=== PATIENT | female | born 1970 | race Caucasian/White ===

== ENCOUNTER → 2018-01-08 10:22 | Outpatient (CLI) | payer BC, SELFPAY ==
--- NOTE | 2018-01-08 10:33 | XR_ITS ---
XR foot LT min 3V HISTORY: ITS.REASON: LEFT FOOT PAIN ORDERING PHYSICIAN: Maura León PATIENT AGE: 47 years COMPARISON: None FINDINGS: No fracture or dislocation. No lytic or blastic change. There is normal mineralization.. The joint spaces are well-preserved. No significant degenerative/arthritic changes. No erosive changes evident. IMPRESSION: Negative, no acute finding
== END ==
PROVIDERS: PCP Family Medicine; Visit Provider Nurse Practitioner
DX: M79.672 Pain in left foot (principal)
CPT/HCPCS: 73630

== ENCOUNTER → 2020-10-11 10:00 | Outpatient (CLI) | payer BC, SELFPAY | PROVIDERS: PCP Family Medicine; Visit Provider Family Medicine | DX: Z20.822 Contact with and (suspected) exposure to COVID-19 (principal) | CPT/HCPCS: U0003 ==

== ENCOUNTER → 2021-02-06 08:19 | Outpatient (POV) | payer BC, SELFPAY | PROVIDERS: Visit Provider Dermatology | DX: Z00.00 Encounter for general adult medical examination without abnormal findings (principal) ==

== ENCOUNTER → 2021-02-21 10:17 | Outpatient (CLI) | payer BC, SELFPAY ==
--- NOTE | 2021-02-21 10:19 | US_ITS ---
PROCEDURE: US SOFT TISSUE HEAD AND NECK CLINICAL INDICATION: ENLARGED LYMPH NODE IN NECK COMPARISON: No exams were available for comparison FINDINGS: Ultrasound of the bilateral neck regions was performed. There is a 2-3 centimeter lymph node in the superior right neck region which appears to show normal morphology. Submandibular glands show no focal abnormality. At site of pain right neck more posteriorly, no discrete abnormality noted. At this point I would recommend CT soft tissue neck with IV contrast to more definitively assess for any other areas of adenopathy. IMPRESSION: 2-3 centimeter lymph node superior right neck appears to show normal morphology. CT soft tissue neck recommended with IV contrast more definitively assess for any other areas of adenopathy. Dictated by: Obed Mendez MD 02/21/2021 12:41 Obed Mendez MD in [place] 02/21/2021 12:41
== END ==
PROVIDERS: PCP Family Medicine; Visit Provider Nurse Practitioner Family
DX: R59.0 Localized enlarged lymph nodes (principal)
CPT/HCPCS: 76536

== ENCOUNTER → 2021-03-05 13:13 | Outpatient (CLI) | payer BC, SELFPAY ==
--- NOTE | 2021-03-05 13:15 | CT_ITS ---
PROCEDURE: CT SOFT TISSUE NECK W CON CLINICAL HISTORY: ENLARGED LYMPHY NODE IN NECK Rt posterior neck nodule at base of skull tendon COMPARISON: No exams were available for comparison TECHNIQUE: Oral Contrast: None IV Contrast: 75 mL Isovue 370 Axial images obtained with sagittal and coronal reformats. All CT scans at the facility use one or more dose reduction, viz: automated exposure control, ma/kV adjustment per patient size (including targeted exams where dose is matched to indication, i.e. head), or iterative reconstruction technique. FINDINGS: Significant artifact present from patient's dental work. Palpable nodule is reported in the posterior neck on the right. BB is placed at this region. There are no underlying masses or abnormal fluid collections at this area. No enlarged lymph nodes or abnormal bony protuberance. Survey of the remaining neck shows no obvious mass or adenopathy or abnormal fluid collection. The nasopharynx, oropharynx, and hypopharynx are unremarkable. The epiglottis and glottic region and subglottic area as well as the thyroid gland has an unremarkable appearance. Parotid and submandibular gland is unremarkable. There is a retention cyst in the left maxillary sinus inferiorly measuring 12 mm. Mild osteoarthritis left TMJ IMPRESSION: Essentially negative CT of the neck. No abnormality to account for the area of palpable concern Dictated by: Vicente Kwan MD 03/06/2021 09:17 Vicente Kwan MD in [place] 03/06/2021 09:17
== END ==
PROVIDERS: PCP Family Medicine; Visit Provider Family Medicine
DX: R59.0 Localized enlarged lymph nodes (principal)
CPT/HCPCS: 70491; Q9967

== ENCOUNTER 2021-03-29 12:09 | Emergency (ER) | payer BC, SELFPAY ==
--- NOTE | 2021-03-29 12:34 | HMH.EDUTC ---
[facility] [place] Disposition Clinical Impression: Exposure to COVID-19 virus, Viral syndrome Disposition: Home, Self-Care Condition on Discharge: Good Instructions: Preventing the Spread of Coronavirus Discharge Instructions Additional Instructions: Drink plenty of fluids. Take tylenol for pain or fever. Return if you begin to have difficulty breathing. Follow up with your regular doctor. GO TO THE ER FOR ANY WORSENING SYMPTOMS Prescriptions: Ondansetron [Zofran 4mg ODT] 4 mg PO Q8HP PRN #12 tab.rapdis PRN Reason: Nausea Transmission Status: Received by [facility] #[id number] Referrals: Joshua Lyons MD [Primary Care Provider] - Forms: Work/School Release Time of Disposition: 12:35 Medical Decision Making - Medical Records Medical records reviewed: No: I reviewed the patient's medical records. - Yimi Inquiry Pt receiving controlled substance: No Vital Signs: 03/29/21 13:01 03/29/21 13:14 Temperature 99.1 F 99 F Temperature Source Oral Pulse Rate 73 Pulse Rate [Left] 73 Respiratory Rate 18 16 Blood Pressure 167/91 H Blood Pressure [Right Arm] 172/93 H Blood Pressure Mean [Right Arm] 119 02 Sat by Pulse Oximetry 99 Orders (Tests/Meds): ORDERS Category Date Time Status Covid-19 Nasal PCR ([facility]) Routine Lab 03/29/21 12:40 Received [facility] [place] HPI - General Stated complaint: covid test Time Seen by Provider: 03/29/21 13:05 - History of Present Illness Provider Complaint: She has been exposed to covid-19 in her household. She c/o headache and nausea for the past 1 day. - Related Data Home Medications Medication Instructions Recorded Confirmed estradioL [Estradiol] 0.1 mg TOPICAL DAILY 02/06/18 07/17/19 Previous Rx's Medication Instructions Recorded Azithromycin [Z-Nithin 250mg Tab*] 250 mg PO UD DOSE PK #6 tab 07/17/19 guaiFENesin [Mucinex 600mg tablet] 1 - 2 tab PO BIDP PRN #30 07/17/19 tab.er.12h methylPREDNISolone [Medrol] 4 mg PO DIRECTED 6 Days #21 07/17/19 tab.ds.pk Ondansetron [Zofran 4mg ODT] 4 mg PO Q8HP PRN #12 tab.rapdis 03/29/21 Allergies Allergy/AdvReac Type Severity Reaction Status Date / Time No Known Allergies Allergy Verified 02/06/18 17:30 [facility] History - Hepatitis A Screen Attestation statement:: This patient has been screened for Hepatitis A risk factors. I have reviewed the patient's past medical history: Yes Medical History: Reports:: Hypertension Denies:: Cancer, Diabetes Mellitus Type 1, Diabetes Mellitus Type 2, MRSA Other Surgeries: Yes: Other (hysterectomy) Amputation: No Fractures: No - Social History Smoking Status: Never smoker Alcohol Intake: never Occupational Status: employed ROS Obtained: Yes All systems reviewed & no additional complaints - Constitutional Constitutional: Reports system reviewed and no additional complaints, except as docu - Eyes Eyes: Reports system reviewed and no additional complaints, except as docu - ENT Ears, Nose, Mouth, and Throat: Reports system reviewed and no additional complaints, except as docu - Cardiovascular Cardiovascular: Reports system reviewed and no additional complaints, except as docu - Respiratory Respiratory: Reports system reviewed and no additional complaints, except as docu - Gastrointestinal Gastrointestingal: Reports: system reviewed and no additional complaints, except as docu Physical Exam - General General appearance: alert, in no apparent distress - Head Head exam: atraumatic, normocephalic, normal inspection - Eye Eye exam: Present: normal appearance, PERRL, EOMI - ENT ENT exam: Present: normal exam, normal oropharynx, mucous membranes moist, TM's normal bilaterally, normal external ear exam - Neck Neck exam: Present: normal inspection, full ROM, trachea midline. Absent: meningismus, lymphadenopathy - Chest Chest inspection: Present: normal inspection, symmetric chest wall rise. Absent: tenderness - Resp
[2021-03-29 13:01] VITALS: BP 172/93; PULSE 73; RESP 18; TEMP 37.3; O2SAT 99; BMI 34.5
[2021-03-29 13:14] VITALS: BP 167/91; PULSE 73; RESP 16; TEMP 37.2
--- NOTE | 2021-03-29 17:43 | PC.NURSE ---
relayed positive covid results.
== END 2021-03-29 13:17 | disposition home or self-care (01) ==
PROVIDERS: Emergency Provider Nurse Practitioner Family; PCP Family Medicine
DX: U07.1 COVID-19 (principal); I10 Essential (primary) hypertension
CPT/HCPCS: 99202; G0463; U0003

== ENCOUNTER 2021-09-04 09:00 | Emergency (ER) | payer BC, SELFPAY ==
[2021-09-04 09:08] VITALS: PULSE 78; RESP 14; TEMP 36.6; O2SAT 96; BMI 32.4
[2021-09-04 09:16] VITALS: BP 165/93; PULSE 78; RESP 14; TEMP 36.6
--- NOTE | 2021-09-04 09:34 | HMH.EDUTC ---
[facility] [place] Disposition Clinical Impression: Otitis media Qualifiers: Otitis media type: suppurative Chronicity: acute Laterality: bilateral Recurrence: non-recurrent Spontaneous tympanic membrane rupture: without spontaneous rupture Qualified Code(s): H66.003 - Acute suppurative otitis media without spontaneous rupture of ear drum, bilateral Sinusitis Qualifiers: Sinusitis location: unspecified location Chronicity: acute Recurrence: non-recurrent Qualified Code(s): J01.90 - Acute sinusitis, unspecified Disposition: Home, Self-Care Condition on Discharge: Good Instructions: Middle Ear Infection, DI for Sinusitis, Methylprednisolone Injection Additional Instructions: Drink plenty of fluids. Take tylenol or ibuprofen for pain or fever. Take the medications as directed. Follow up with your regular doctor. GO TO THE ER FOR ANY WORSENING SYMPTOMS Don't start the oral steroids until tomorrow, since you had the shot here today. Follow up with your primary care physician regarding your elevated blood pressure. Prescriptions: methylPREDNISolone [Medrol] 4 mg PO DIRECTED 6 Days #21 packet Transmission Status: Received by [facility] guaiFENesin [Mucinex 600mg tablet] 1 - 2 tab PO BIDP PRN #30 tab PRN Reason: Congestion Transmission Status: Received by [facility] Azithromycin [Z-Nithin 250mg Tab*] 250 mg PO UD DOSE PK #6 tab Transmission Status: Received by [facility] Referrals: Joshua Lyons MD [Primary Care Provider] - Time of Disposition: 09:40 Medical Decision Making - Medical Records Medical records reviewed: No: I reviewed the patient's medical records. - Yimi Inquiry Pt receiving controlled substance: No Vital Signs: 09/04/21 09:08 09/04/21 09:16 Temperature 97.9 F 97.9 F Temperature Source Oral Pulse Rate 78 Pulse Rate [Left] 78 Respiratory Rate 14 14 Blood Pressure 165/93 H 02 Sat by Pulse Oximetry 96 - Lab Data Lab results reviewed: Yes: I reviewed the patient's lab results. [facility] [place] HPI - General Stated complaint: ear pain Time Seen by Provider: 09/04/21 09:34 Mode of Arrival: Ambulatory Source of Information: Patient Limitations: No Limitations Description of Symptoms (Recalled from Triage Doc. by RN): pt c/o of a L ear ache x2 days. HEENT Symptoms (Recalled from RN notes): Yes (L ear ache) Resp Symptoms (Recalled from RN notes): No Skin Symptoms (Recalled from RN notes): No MS Symptoms (Recalled from RN notes): No Functional Status (Recalled from RN notes): wnl - History of Present Illness Provider Complaint: She states that for the past 4 days she has had worsening left ear pain pressure. She has sinus congestion and lots of drainage from her sinuses. She gets sinus infections this time of year and that is what she feels like is going on. She as been fully vaccinated for Covid-19 and she has had covid-19 back in the summer. She denies any contact with someone that has covid-19. - Related Data Home Medications Medication Instructions Recorded Confirmed estradioL [Estradiol] 0.1 mg TOPICAL DAILY 02/06/18 07/08/21 Previous Rx's Medication Instructions Recorded amoxicillin 500 mg tablet 500 mg PO BID 10 Days #20 tab 07/08/21 Azithromycin [Z-Nithin 250mg Tab*] 250 mg PO UD DOSE PK #6 tab 09/04/21 guaiFENesin [Mucinex 600mg tablet] 1 - 2 tab PO BIDP PRN #30 tab 09/04/21 methylPREDNISolone [Medrol] 4 mg PO DIRECTED 6 Days #21 09/04/21 packet Allergies Allergy/AdvReac Type Severity Reaction Status Date / Time No Known Allergies Allergy Verified 07/08/21 11:25 - Worker's Comp Is this a Worker's Comp case?: No H History - Hepatitis A Screen Drug use history?: No High risk sexual behaviors?: No History of sexually transmitted infection?: No Currently employed?: No Childcare worker?: No Do you have indoor plumbing?: Yes Do you have electricity?: Yes Attestation statement:: This patient
== END 2021-09-04 09:52 | disposition home or self-care (01) ==
PROVIDERS: Emergency Provider Nurse Practitioner Family; PCP Family Medicine
DX: H66.003 Acute suppurative otitis media without spontaneous rupture of ear drum, bilateral (principal); J01.90 Acute sinusitis, unspecified; I10 Essential (primary) hypertension
CPT/HCPCS: 99202; G0463

== ENCOUNTER 2022-08-29 14:45 | Emergency (ER) | payer BC, SELFPAY ==
[2022-08-29 15:16] VITALS: BP 179/100; PULSE 89; RESP 16; TEMP 36.8; O2SAT 98; BMI 33.3
[2022-08-29 15:36] LABS: Microscopic, Urine URINE MICROSCOPIC (MICROSCOPIC)
[2022-08-29 15:47] LABS: Appearance,Urine CLEAR (Clear); Bilirubin,Urine Negative (Negative); Blood, Urine Negative (Negative); Color,Urine YELLOW (Yellow); Glucose,Urine (UA) Negative (Negative); Ketones,Urine Negative (Negative); Leukocyte Esterase,Urine Negative (Negative); Nitrate,Urine Negative (Negative); PH,Urine 6.5 (5.0-8.5); Protein,Urine Negative (Negative); Specific Gravity, Urine <= 1.005 (1.005-1.030); Urobilinogen,Urine 0.2 EU/dl (0.2)
[2022-08-29 15:53] VITALS: BP 186/94; PULSE 77; O2SAT 99
[2022-08-29 16:00] VITALS: BP 173/96; PULSE 85; O2SAT 98
[2022-08-29 16:03] LABS: RBC,Urine Occasional #/hpf (0-3); WBC,Urine Occasional #/hpf (0-3)
--- NOTE | 2022-08-29 16:05 | CT_ITS ---
PROCEDURE INFORMATION: Exam: CT Abdomen And Pelvis With Contrast Exam date and time: 08/29/2022 4:33 PM Age: 52 years old Clinical indication: Abdominal pain; Other: Rlq pain; Prior surgery; Additional info: Rlq pain and anorexia TECHNIQUE: Imaging protocol: Computed tomography of the abdomen and pelvis with contrast. Radiation optimization: All CT scans at this facility use at least one of these dose optimization techniques: automated exposure control; mA and/or kV adjustment per patient size (includes targeted exams where dose is matched to clinical indication); or iterative reconstruction. Contrast material: ISOVUE; Contrast volume: 75 ml; Contrast route: IV; COMPARISON: No relevant prior studies available. FINDINGS: Liver: No focal hepatic lesions. Gallbladder and bile ducts: There has been a cholecystectomy. No biliary ductal dilation. Pancreas: No peripancreatic fluid stranding. No main pancreatic ductal dilation. Spleen: There are innumerable hypodensities throughout the spleen too small to accurately characterize. No splenomegaly. Adrenal glands: Normal. No mass. Kidneys and ureters: Nephrograms are symmetric. No nephrolithiasis or hydroureteronephrosis on either side. No solid lesions Stomach and bowel: A short segment of terminal ileum demonstrates diffuse inflammatory changes and stratification of the wall. Appendix: A normal appendix is identified. Intraperitoneal space: There is no evidence of free intraperitoneal or pelvic fluid. Vasculature: Retroaortic left renal vein noted. Aorta is nonaneurysmal. Lymph nodes: Right hilar calcified nodes noted.Lung bases are unremarkable. No evidence of retroperitoneal or mesenteric lymphadenopathy. Urinary bladder: Urinary bladder is unremarkable. Reproductive: Status post hysterectomy. Bones/joints: Unremarkable. No acute fracture. Soft tissues: Unremarkable. IMPRESSION: Infectious/inflammatory terminal ileitis.
--- NOTE | 2022-08-29 16:07 | HMH.EDGENADL ---
Discharge Plan Disposition Patient Disposition: Home, Self-Care Condition: Good Chief Complaint: Abdominal Pain Prescriptions Prescriptions: No Action amoxicillin 500 mg tablet 500 mg PO BID 10 Days Qty: 20 0RF estradiol 0.1 patch semiweekly 0.1 mg TOPICAL DAILY azithromycin 250 MG tablet 250 mg PO UD DOSE PK Qty: 6 0RF Rx Instructions: Take two (2) tablets today, then one (1) tablet days #2 thru #5 methylprednisolone 4 MG tablets,dose pack 4 mg PO DIRECTED 6 Days Qty: 21 0RF guaifenesin 600 MG tablet extended release 12hr 1 - 2 tab PO BIDP PRN (Reason: Congestion) Qty: 30 0RF Referrals Follow up/Referrals: Fredy Eugene MD [Primary Care Provider] - See instructions Activity Restrictions/Add. Instructions Additional Instructions/Restrictions: Follow-up with your family doctor regarding this visit to the emergency department and new diagnosis of terminal ileitis. Take Tylenol and Motrin every 6 hours with food and water to prevent GI upset and help with inflammation. If you have bloody bowel movements, worsening signs or symptoms, return to the ED for further evaluation. This could be the result of infectious (likely viral), or new diagnoses of inflammatory bowel disease, such as Crohn disease. Clinical Impressions Clinical Impression: Ileitis, terminal Qualifiers: Digestive disease complication type: without complication Qualified Code(s): K50.00 - Crohn's disease of small intestine without complications Instructions Patient Instructions: DI for Acute Abdominal Pain Discharge ED Provider: Terry Hutchins General Adult HPI General Chief complaint: Abdominal Pain Stated complaint: Rt side abd pain Time Seen by Provider: 08/29/22 15:35 Mode of Arrival: Ambulatory Source of Information: Patient Limitations: No Limitations Description of Symptoms (Recalled from ER Triage Doc. by RN): Pt c/o umbilical area pain that radiates down to lower abd and around to flank intermittently. Pt also reports nausea. Pt states pain began lastnight. History of Present Illness HPI narrative: This is a 52-year-old female with history of JORGE/BSO, cholecystectomy who is presenting with abdominal pain. Patient states that she began having abdominal pain on 08/28 in the PM. She was sitting still, not exerting herself when pain started. It has since been crescendo in nature. It ranges anywhere from 4-8 out of 10 and is random, not exacerbated by anything in particular. Nothing particular seems to make it better, but lying on her right side where the pain is seems to make it worse consistently. Pain feels as if it radiates from her right lower quadrant to her right flank. Denies nausea, vomiting, diaphoresis, dysuria, hematuria, abnormal vaginal discharge or bleeding, constipation, fevers, chills, but has had associated decreased p.o. intake. Related Data Home Medications Medication Instructions Recorded Confirmed estradiol 0.1 mg/24 hr semiweekly 0.1 mg topical DAILY Supplement 02/06/18 07/08/21 transdermal patch Previous Rx's Medication Instructions Recorded amoxicillin 500 mg tablet 500 mg PO BID 10 days #20 tabs 07/08/21 azithromycin 250 mg tablet 250 mg PO UD DOSE PK #6 tabs 09/04/21 guaifenesin 600 mg tablet, 1 - 2 tab PO BIDP PRN Congestion 09/04/21 extended release 12 hr #30 tabs methylprednisolone 4 mg tablets in 4 mg PO DIRECTED 6 days #21 09/04/21 a dose pack packets Allergies Allergy/AdvReac Type Severity Reaction Status Date / Time No Known Allergies Allergy Verified 07/08/21 11:25 [facility] Disclaimer: The information contained in this section may have been updated after the patient was seen, as this information can be updated by other users. Social History Smoking Status: Never smoker alcohol intake: never current occupational status: employed Travel in the last 8 weeks: None ROS Obtained: Yes All systems reviewed & no additional complaint
[2022-08-29 16:12] LABS: Basophils # 0.1 K/mm3 (0-0.2); Basophils % 0.5 % (0.1-2.0); Chloride 101 mmol/L (98-107); Eosinophils # 0.1 K/mm3 (0.0-0.4); Eosinophils % 0.6 % (0.1-12.0); Hematocrit 48.2 % (37.0-47.0); Hemoglobin 15.7 g/dL (12.2-16.2); Lymphocytes # 1.2 K/mm3 (0.7-4.5); Lymphocytes % 8.5 % (10-50); Mean Corpuscular HGB Conc 32.7 g/dL (31.8-35.4); Mean Corpuscular Hemoglobin 30.4 pg (27.0-31.2); Mean Corpuscular Volume 93.1 fl (81-99); Mean Platelet Volume 9.4 fl (7.4-10.4); Monocytes # 0.7 K/mm3 (0.1-1.0); Monocytes % 4.8 % (1.7-9.3); Neutrophils # 11.9 K/mm3 (1.8-7.8); Neutrophils % 85.5 % (37.0-80.0); Platelet Count 260 K/mm3 (142-424); Red Blood Count 5.18 M/mm3 (4.20-5.40); Red Cell Distribution Width 12.6 % (11.5-17.5); Sodium 138 mmol/L (136-145); White Blood Count 13.9 K/mm3 (4.8-10.8)
[2022-08-29 16:13] LABS: Potassium 3.8 mmoL/L (3.5-5.1)
[2022-08-29 16:15] LABS: Alanine Aminotransferase 38 U/L (12-78); Albumin Level 4.6 g/dl (3.5-5.0); Albumin/Globulin Ratio 1.4 (1.1-1.8); Alkaline Phosphatase 130 U/L (38-126); Anion Gap 10.8 mEq/L (5-15); Aspartate Amino Transferase 41 U/L (14-36); Blood Urea Nitrogen 9 mg/dl (7-17); Calcium 9.6 mg/dl (8.4-10.2); Carbon Dioxide 30 mmol/L (22.0-30.0); Creatinine Clearance Estimated 88 mL/min (50-200); Estimated Glomerular Filt Rate 58 ml/min (>60); GFR (African American) 70 ML/MIN (>60); Globulin 3.4 g/dL (1.3-3.2); Glucose 93 mg/dl (74-100)
[2022-08-29 16:16] LABS: MANUAL DIFFERENTIAL MANUAL DIFFERENTIAL (MANUAL DIFF)
[2022-08-29 16:21] LABS: Lipase 161 U/L (23-300)
[2022-08-29 16:40] LABS: Eosinophils % 1 % (0-3); Lymphocytes % 13 % (10-50); Monocytes % 1 % (2-9); Neutrophils % 85 % (42-76); Platelet Estimate Normal; RBC Morphology Normal; Total Cells Counted 100
--- NOTE | 2022-08-29 17:02 | PC.NURSE ---
checked on pt at this time, pt family at [facility], states no needs at this time
[2022-08-29 17:38] VITALS: BP 158/83; PULSE 68; RESP 20; TEMP 36.8; O2SAT 95
== END 2022-08-29 17:39 | disposition home or self-care (01) ==
PROVIDERS: Emergency Provider Emergency Medicine; PCP Family Medicine
DX: K50.00 Crohn's disease of small intestine without complications (principal); R11.0 Nausea; Z79.3 Long term (current) use of hormonal contraceptives; Z79.52 Long term (current) use of systemic steroids; Z79.899 Other long term (current) drug therapy
CPT/HCPCS: 74177; 80053; 81001; 83605; 83690; 85007; 85025; 96374; 99285; J2405; Q9967

== ENCOUNTER 2022-09-22 15:02 | Emergency (ER) | payer BC, SELFPAY ==
[2022-09-22 15:03] VITALS: BP 180/94; PULSE 78; RESP 22; TEMP 36.7; O2SAT 95; BMI 33.6
--- NOTE | 2022-09-22 15:18 | EXP.UTC ---
Discharge Plan Disposition Patient Disposition: Home, Self-Care Condition: Good Prescriptions Prescriptions: New cyclobenzaprine 10 mg Tablet 10 mg PO BID PRN (Reason: Muscle Spasm) Qty: 20 0RF methylprednisolone 4 mg Tablets,Dose Pack 4 mg PO DIRECTED Qty: 21 0RF No Action estradiol 0.05 mg/24 hr patch semiweekly 1 patch transdermal DAILY losartan 100 mg tablet 100 mg PO DAILY rosuvastatin 5 mg tablet 5 mg PO DAILY Referrals Follow up/Referrals: Fredy Eugene MD [Primary Care Provider] - See instructions Activity Restrictions/Add. Instructions Additional Instructions/Restrictions: Go home and rest. It would be best if you rested tomorrow too. No heavy lifting. No twisting. Take the oral medications as directed. The muscle relaxer (cyclobenzaprine--Flexeril) will make you drowsy, so don't drive or operate heavy machinery after taking it. Don't start the oral steroids (medrol dose pack) until tomorrow, since you had the shots in here today. Follow up with your regular doctor. GO TO THE ER FOR ANY WORSENING SYMPTOMS OR CONCERN, ESPECIALLY BOWEL OR BLADDER ISSUES, SADDLE AREA NUMBNESS, FEVER, ETC Clinical Impressions Clinical Impression: Radicular pain in right arm, Acute neck pain Instructions Patient Instructions: DI for Neck Pain, Cyclobenzaprine, Methylprednisolone Injection Discharge ED Provider: Obed Cage [facility] General Stated complaint: pain in R shoulder going to neck Time Seen by Provider: 09/22/22 15:18 History of Present Illness Provider Complaint: She states that for the past 3 days she has had right sided neck pain that radiates down her arm to her hand at time. She states that certain movements make the pain worse. She denies any injury. She denies any chest pain. Related Data Home Medications Medication Instructions Recorded Confirmed estradiol 0.05 mg/24 hr semiweekly 1 patch transdermal DAILY hormone 09/22/22 09/22/22 transdermal patch losartan 100 mg tablet 100 mg PO DAILY . 09/22/22 09/22/22 rosuvastatin 5 mg tablet 5 mg PO DAILY Cholesterol 09/22/22 09/22/22 Previous Rx's Medication Instructions Recorded cyclobenzaprine 10 mg tablet 10 mg PO BID PRN Muscle Spasm #20 09/22/22 tabs methylprednisolone 4 mg tablets in 4 mg PO DIRECTED #21 tabs 09/22/22 a dose pack Allergies Allergy/AdvReac Type Severity Reaction Status Date / Time No Known Allergies Allergy Verified 09/22/22 15:25 [facility] Disclaimer: The information contained in this section may have been updated after the patient was seen, as this information can be updated by other users. Social History Smoking Status: Never smoker alcohol intake: never current occupational status: employed Travel in the last 8 weeks: None ROS Obtained: Yes All systems reviewed & no additional complaints except as documented Constitutional Constitutional: Denies chills and Denies fever(s) Eyes Eyes: Denies eye discharge ENT Ears, Nose, Mouth, and Throat: Denies dizziness, Denies otalgia, Reports neck pain and Denies sore throat Cardiovascular Cardiovascular: Denies chest pain Respiratory Respiratory: Denies shortness of breath, Denies chest congestion, Denies cough, Denies stridor and Denies wheezing Gastrointestinal Gastrointestingal: Denies nausea or vomiting Musculoskeletal Musculoskeletal: Reports as per HPI and Reports neck pain Integumentary/Breasts Skin/Breast: Denies rash Neurologic Neurologic: Denies dizziness and Denies paresthesias Allergic/Immunologic Allergic/Immunologic: Denies wheezing Physical Exam General General appearance: alert and in no apparent distress Head Head exam: atraumatic, normocephalic and normal inspection Eye Eye exam: Present normal appearance, PERRL and EOMI ENT ENT exam: Present normal exam, normal oropharynx, mucous membranes moist, TM's normal bilaterally a
[2022-09-22 16:30] VITALS: BP 180/94; PULSE 78; RESP 20; TEMP 36.7; O2SAT 95
== END 2022-09-22 16:30 | disposition home or self-care (01) ==
PROVIDERS: Emergency Provider Nurse Practitioner Family; PCP Family Medicine
DX: M54.12 Radiculopathy, cervical region (principal)
CPT/HCPCS: 99212; 99213; G0463

== ENCOUNTER → 2022-11-18 08:24 | Outpatient (POV) | payer BC, SELFPAY ==
[2022-11-18 09:05] VITALS: BP 172/103; PULSE 99; RESP 18; O2SAT 97; BMI 32.9
--- NOTE | 2022-11-18 10:11 | EXP.PAIN.OV ---
HPI Data of Consult Patient: new to practice Consult date: 11/18/22 Requesting Physician: Em Aburto APRN Primary Care Provider: Fredy Eugene MD Consult Narrative Reason for consult: Right neck pain, right shoulder pain History of present illness: Ms. Rubio is a 52 year old female who presents today as a new patient. She is a referral from [facility]. Today she rates her pain a 9 out of 10. Patient states she continues to experience significant pain in her neck along the right side with radiating symptoms in her right shoulder that does go into her chest. Patient states that back on September 19 she was diagnosed with an acute shingles outbreak. She was given acyclovir and gabapentin. Patient states that she has completed her last steroid pack and the acyclovir however she continues to have residual pain. 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 Patient does state that she is very tender to touch from the back of her scalp down to her right shoulder. She states that it is very bothersome that even the touch of her hair or clothing causes extreme amounts of pain. She states that at the beginning it was almost like an electrical shock and had pins and needle sensation however she states this did improve some however she would describe her pain as a constant soreness as if twisting inside of her. Patient states that the gabapentin does seem to make her emotional and that she has not noticed significant relief. Patient is also tried facial massage that did provide additional relief. She does state that she is currently in the process of being referred to Dr. Mora however she has not heard from their office yet. Patient does state that she continues to have significant itching as well. She is currently managed with gabapentin 300 mg 3 times a day and she was also given tramadol 50 mg in the past. Her Yimi is [id number]. Its been reviewed and appropriate. CC: Em Aburto APRN [facility] Disclaimer: The information contained in this section may have been updated after the patient was seen, as this information can be updated by other users. Medical History (Updated 11/18/22 @ 10:18 by Em Aburto APRN) HLD (hyperlipidemia) HTN (hypertension) Surgical History (Updated 11/18/22 @ 09:06 by Rachel Llanos RN) H/O: hysterectomy History of cholecystectomy Social History (Updated 11/18/22 @ 09:07 by Rachel Llanos RN) Smoking Status: Never smoker alcohol intake: never current occupational status: employed Travel in the last 8 weeks: None Review of Systems Review of Systems Review of systems:: pertinent systems reviewed and negative unless documented below Review of systems (narrative): Review of Systems: General: No recent weight changes, no fever, no sleep disturbances Respiratory: No cough, no shortness of air, no recurring pulmonary infections Cardiovascular/peripheral vascular: No chest pain, no palpitations, no edema, no shortness of breath Gastrointestinal: No new onset incontinence, normal bowel movements reported Genitourinary: No new onset incontinence Musculoskeletal: Right neck pain, right shoulder pain Psychiatric: [Normal mood/affect] Neurological: [Denies weakness in extremities], [denies balance issues] Meds Home Medications and Allergies Home Medications Medication Instructions Recorded Confirmed Type cyclobenzaprine 10 mg tablet 10 mg PO BID PRN Muscle Spasm #20 09/22/22 11/18/22 Rx tabs estradiol 0.05 mg/24 hr semiweekly 1 patch transdermal DAILY hormone 09/22/22 11/18/22 History transdermal patch losartan 100 mg tablet 100 mg PO DAILY . 09/22/22 11/18/22 History rosuvastatin 5 mg tablet 5 mg PO DAILY Cholesterol 09/22/22 11/18/22 History hydroxyzine pamoate 25 mg capsule 25 mg PO BID PRN itching #60 caps 11/18/22 Rx (Vistaril) methocarbamol 5
== END | disposition home or self-care (01) ==
PROVIDERS: PCP Family Medicine; Visit Provider Nurse Practitioner Family
DX: M54.2 Cervicalgia (principal); M25.511 Pain in right shoulder; G51.0 Bell's palsy; M79.18 Myalgia, other site; B02.9 Zoster without complications
CPT/HCPCS: 99202; G0463

== ENCOUNTER 2022-11-19 08:43 | Day surgery (SDC) | payer BC, SELFPAY ==
[2022-11-19 09:04] VITALS: BP 175/99; PULSE 81; RESP 18; TEMP 36.3; O2SAT 98; BMI 32.9
[2022-11-19 09:30] VITALS: BP 190/100; PULSE 89; RESP 18
[2022-11-19 09:39] VITALS: BP 166/109; PULSE 79; RESP 18; O2SAT 96
--- NOTE | 2022-11-19 10:00 | P.PCN_ITS ---
Procedure Date: 11/19/22 Time: 09:50 Anesthesiologist:: Cruz Parisi CRNA Complications:: None Pre-procedure Diagnosis:: Postherpetic neuralgia. Herpes zoster. Post-procedure Diagnosis:: Same. Indications for Procedure:: Patient is a pleasant 52-year-old female that comes our clinic today with herpes zoster outbreak since mid September 2022. She comes to our injection clinic today for peripheral nerve blocks over the right trapezius and right upper chest for postherpetic neuralgia. Patient has been on 2 different antivirals. She also takes gabapentin 300 mg 1 p.o. 3 times daily. However, she reports today that the gabapentin makes her slightly crazy. I encouraged her to only take it at night. Procedure Details:: Details of the procedure were explained to the patient. The patient was taken to procedure room placed in the sitting position. The area over the trapezius and upper right chest area was cleansed with several alcohol swabs. Using a 25- gauge needle 3 separate injections was given in a fanning fashion after negative aspiration over the right trapezius. 3 cc of a solution containing 0.25% Marcaine +1% lidocaine and 40 mg of Depo-Medrol was used. The same was carried out over the right upper chest and 2 separate injection sites. Patient tolerated the procedure without difficulty. There are no complications. Plan and Disposition:: Patient returned to the injection clinic a week from today for further peripheral nerve blocks if needed.
== END 2022-11-19 09:39 | disposition home or self-care (01) ==
LOC: SC.PAINP 08:44
PROVIDERS: PCP Family Medicine; Visit Provider Nurse Anesthetist, Certified Registered
DX: B02.29 Other postherpetic nervous system involvement (principal)
CPT/HCPCS: 64450; J1040

== ENCOUNTER 2022-11-26 10:29 | Day surgery (SDC) | payer BC, SELFPAY ==
[2022-11-26 10:53] VITALS: BP 196/93; PULSE 66; RESP 18; TEMP 36.2; O2SAT 98; BMI 32.9
[2022-11-26 11:02] VITALS: BP 180/97; PULSE 68; RESP 18; O2SAT 97
[2022-11-26 11:05] VITALS: BP 172/88; PULSE 71; RESP 18; O2SAT 98
--- NOTE | 2022-11-26 11:52 | EXP.PAIN.PRO ---
Procedure Date: 11/26/22 Time: 11:00 Anesthesiologist:: Cruz Parisi CRNA Complications:: None Pre-procedure Diagnosis:: Trigger point injections right trapezius muscle secondary to postherpetic neuralgia. Herpes zoster. Post-procedure Diagnosis:: Same. Indications for Procedure:: This patient is a very pleasant 52-year-old female that comes our clinic today for repeat right trigger point injections covering right postherpetic neuralgia/herpes zoster lesions. Patient has a 2-month history of herpes zoster. Patient had injections over the same site 7 days ago. She reports 3 days postinjection she was 100% better. Injections include local anesthesia as well as steroid. She continues taking gabapentin at night. Procedure Details:: Trigger point injection over the right trapezius muscle and 2 separate areas near the herpes zoster lesions. Using a 22-gauge inch and a half needle 5 cc of local anesthetic +20 mg of Depo-Medrol was injected at each site covering the right trapezius muscle. Patient tolerated procedure without difficulty. There are no complications. Plan and Disposition:: Patient was discharged without incident.
== END 2022-11-26 11:05 | disposition home or self-care (01) ==
LOC: SC.PAINP 10:31
PROVIDERS: PCP Family Medicine; Visit Provider Nurse Anesthetist, Certified Registered
DX: B02.29 Other postherpetic nervous system involvement (principal)
CPT/HCPCS: 20552; J1040

== ENCOUNTER 2022-12-03 14:37 | Day surgery (SDC) | payer BC, SELFPAY ==
[2022-12-03 14:50] VITALS: BP 180/103; PULSE 65; RESP 18; TEMP 36.2; O2SAT 98; BMI 32.5
[2022-12-03 15:12] VITALS: BP 187/90; PULSE 73; RESP 18; O2SAT 98
[2022-12-03 15:13] VITALS: BP 187/90; PULSE 73; RESP 18; O2SAT 98
--- NOTE | 2022-12-03 15:19 | EXP.PAIN.PRO ---
Procedure Date: 12/03/22 Time: 15:20 Anesthesiologist:: Crzu Parisi CRNA Complications:: None Pre-procedure Diagnosis:: Postherpetic neuralgia right trapezius area Post-procedure Diagnosis:: Same Indications for Procedure:: Very pleasant 52-year-old female returns our clinic today continuing with pain from postherpetic neuralgia. Patient had herpes zoster outbreak the right trapezius area right chest area. Lesions are now healed. She continues with some postherpetic neuralgia pain. Patient reports previous trigger point injections in these areas have significantly improved her pain. Procedure Details:: Trigger point injection over the right trapezius muscle and 2 separate areas near the herpes zoster lesions.? Using a 22-gauge inch and a half needle 5 cc of local anesthetic +20 mg of Depo-Medrol was injected at each site covering the right trapezius muscle.? Patient tolerated procedure without difficulty.? There are no complications. Plan and Disposition:: Patient was discharged without incident.
[2022-12-03 15:20] VITALS: BP 153/93; PULSE 93; RESP 20
== END 2022-12-03 15:20 | disposition home or self-care (01) ==
PROVIDERS: PCP Family Medicine; Visit Provider Nurse Anesthetist, Certified Registered
DX: B02.29 Other postherpetic nervous system involvement (principal); G51.0 Bell's palsy; M79.18 Myalgia, other site; M54.2 Cervicalgia; M25.519 Pain in unspecified shoulder
CPT/HCPCS: 20552; J1040

== ENCOUNTER → 2022-12-18 10:24 | Outpatient (POV) | payer BC, SELFPAY ==
[2022-12-18 10:39] VITALS: BP 154/100; PULSE 80; RESP 20; O2SAT 97; BMI 32.5
--- NOTE | 2022-12-18 10:44 | EXP.PAIN.SOA ---
[facility] Pain Management SOAP Note Subjective:: Patient is a pleasant 52-year-old female who presents today for follow-up of trigger point injections at her right trapezius muscles on 12/03/2022. We are currently treating the patient for right neck pain, right shoulder pain, acute herpes zoster outbreak with Balbuena's palsy, myofascial pain of right trapezius muscle. Today she rates her pain a 0 out of 10. She states she has had at least 80% improvement following these injections along with the gabapentin 400 mg twice a day, compounding cream and methocarbamol 500 mg at bedtime. Patient was also prescribed Vistaril 25 mg twice a day for itching however she states this is improved and she has not needed to take this medication. She does states she will occasionally have pain but it is much more tolerable and typically does well with the Tylenol. She has started going back to work and states she does feel that she has had improvement with her Balbuena's palsy as well. Her Yimi is [id number]. Its been reviewed and appropriate. Review of Systems: General: No recent weight changes, no fever, no sleep disturbances Respiratory: No cough, no shortness of air, no recurring pulmonary infections Cardiovascular/peripheral vascular: No chest pain, no palpitations, no edema, no shortness of breath Gastrointestinal: No new onset incontinence, normal bowel movements reported Genitourinary: No new onset incontinence Musculoskeletal: right neck/shoulder pain Psychiatric: [Normal mood/affect] Neurological: [Denies weakness in extremities], [denies balance issues] Objective:: Physical Exam: General: Alert and oriented x3, no acute distress, pleasant and cooperative Lungs: Respirations even and unlabored, symmetrical chest expansion Eyes: PERRL Musculoskeletal: Flexion and extension of cervical [spine] somewhat guarded secondary to pain, [antalgic gait noted] point tenderness along right cervical paraspinous and right trapezius muscles Neurological: Speech clear, no gross sensory deficit Assessment:: Right neck pain, right shoulder pain, acute herpes zoster outbreak with Balbuena's palsy, myofascial pain of right trapezius muscles Plan:: Patient has had at least 80% improvement following her injection into her medication regimen. I will refill her gabapentin 400 mg twice daily and provide a 1 month supply of this medication along with her methocarbamol 500 mg at bedtime. I have discussed with the patient that she may benefit from repeat trigger point injections at her right cervical paraspinous and right trapezius muscles in the future. Patient can call to schedule this over the phone. Patient will return to clinic in 1 month for reevaluation of symptoms and plan of care. Patient has been instructed to contact the clinic with any concerns before the next appointment. Dr. Mccarty has reviewed this note and agrees with this plan of care. This note was dictated using voice recognition software and make contain errors or omissions. [facility] Disclaimer: The information contained in this section may have been updated after the patient was seen, as this information can be updated by other users. Medical History HLD (hyperlipidemia) HTN (hypertension) Surgical History H/O: hysterectomy History of cholecystectomy Family History Other No significant family history Social History Smoking Status: Never smoker alcohol intake: never current occupational status: employed Travel in the last 8 weeks: None
== END | disposition home or self-care (01) ==
PROVIDERS: PCP Family Medicine; Visit Provider Nurse Practitioner Family
DX: M54.2 Cervicalgia (principal); M25.511 Pain in right shoulder; G51.0 Bell's palsy; M79.18 Myalgia, other site
CPT/HCPCS: 99212; G0463

== ENCOUNTER 2023-01-07 08:25 | Day surgery (SDC) | payer BC, SELFPAY ==
[2023-01-07 08:53] VITALS: BP 164/108; PULSE 85; RESP 18; TEMP 36.4; O2SAT 98; BMI 31.7
[2023-01-07 09:08] VITALS: BP 164/108; PULSE 85; RESP 18; O2SAT 98
--- NOTE | 2023-01-07 09:14 | EXP.PAIN.PRO ---
Procedure Date: 01/07/23 Time: 08:30 Anesthesiologist:: Cruz Parisi CRNA Complications:: None Pre-procedure Diagnosis:: Postherpetic neuralgia. Post-procedure Diagnosis:: Same. Indications for Procedure:: Patient is a very pleasant 52-year-old female comes our clinic today for reevaluation regarding her postherpetic neuralgia pain on the right shoulder covering the right trapezius muscle. She describes the pain as electrical shocks. She states the pain is not severe. However, pain is very annoying. She rates pain 7/10. Patient continue to take gabapentin 300 mg 1 p.o. nightly. Patient unable to take gabapentin during the day when working due to fogginess. Patient also taking antihistamine daily. I discussed peripheral nerve block in the right shoulder area. She wishes to proceed. Procedure Details:: Details of the procedure explained the patient. The patient taken to procedure room placed in sitting position. The area over the right shoulder was cleaned using chlorhexidine cleansing solution. Using a 25-gauge inch and half needle 3 separate areas were injected with 3 to 4 cc of a solution containing Marcaine, lidocaine and Depo-Medrol. Each area was injected in a fanning fashion covering 4 to 6 cm. Plan and Disposition:: Patient was discharged without incident.
== END 2023-01-07 09:08 | disposition home or self-care (01) ==
LOC: SC.PAIN 01-08 15:01
PROVIDERS: PCP Family Medicine; Visit Provider Nurse Anesthetist, Certified Registered
DX: B02.29 Other postherpetic nervous system involvement (principal)
CPT/HCPCS: 64450; J1040

== ENCOUNTER → 2023-04-21 12:57 | Outpatient (POV) | payer BC, SELFPAY ==
[2023-04-21 13:16] VITALS: BP 187/100; PULSE 75; RESP 18; O2SAT 98; BMI 32.8
--- NOTE | 2023-04-21 13:23 | EXP.PAIN.SOA ---
[facility] Pain Management SOAP Note Subjective:: Patient is a pleasant 52-year-old female who presents today for follow-up and medication refill. We are currently treating the patient for right neck pain, right shoulder pain, acute herpes zoster outbreak with Balbuena's palsy, myofascial pain of right trapezius muscle. Today she rates her pain a 1 out of 10. Patient does state that she has had improvement with the Balbuena's palsy and the shingles however she will notice on certain days she has more tenderness and itching at where the site of her shingles broke out. Patient does state that she has had a lot going on that has increased her stress including a family member who had , her daughter's graduation and people quitting at her work. Patient's blood pressure was high during this visit and she states that she has not been taking her medication on a regular basis. She does state that she plans on doing better however she will forget to take this medication. She is currently prescribed gabapentin 300 mg daily, compounding cream and methocarbamol 500 mg at bedtime. She was previously prescribed Vistaril 25 mg twice a day for itching however she had improvement and was not needing to take this medication. She is requesting a refill on it today. She does state that she is planning on making several changes to help improve her stress. Her Yimi is [phone]. Its been reviewed and appropriate. Review of Systems: General: No recent weight changes, no fever, no sleep disturbances Respiratory: No cough, no shortness of air, no recurring pulmonary infections Cardiovascular/peripheral vascular: No chest pain, no palpitations, no edema, no shortness of breath Gastrointestinal: No new onset incontinence, normal bowel movements reported Genitourinary: No new onset incontinence Musculoskeletal: right neck/shoulder pain Psychiatric: [Normal mood/affect] Neurological: [Denies weakness in extremities], [denies balance issues] Objective:: Physical Exam: General: Alert and oriented x3, no acute distress, pleasant and cooperative Lungs: Respirations even and unlabored, symmetrical chest expansion Eyes: PERRL Musculoskeletal: Flexion and extension of cervical [spine] somewhat guarded secondary to pain, [antalgic gait noted] point tenderness at right cervical paraspinous and right trapezius Neurological: Speech clear, no gross sensory deficit Assessment:: Right neck pain, right shoulder pain, acute herpes zoster outbreak with Balbuena's palsy, myofascial pain Plan:: Patient is experiencing occasional flareups of her pain and itching. I will refill her gabapentin 300 mg daily, methocarbamol 500 mg at bedtime and Vistaril 25 mg twice a day and provide a 3-month supply of these medications. Patient will return to clinic in 3 months for reevaluation of symptoms and medication refill. I have counseled the patient that if she does decide that she needs additional trigger point injections she can call our office and schedule these over the phone. I have also counseled the patient that it would be beneficial for her to take her blood pressure more frequently using both arms and to keep a journal of the readings that she can review with her primary care provider. Patient has been instructed to contact the clinic with any concerns before the next appointment. Dr. Mccarty has reviewed this note and agrees with this plan of care. This note was dictated using voice recognition software and make contain errors or omissions. [facility] Disclaimer: The information contained in this section may have been updated after the patient was seen, as this information can be updated by other users. Medical History HLD (hyperlipidemia) HTN (hypertension) Surgical History H/O: hysterectomy History of cholecystectomy Family History Other
== END | disposition home or self-care (01) ==
PROVIDERS: Visit Provider Nurse Practitioner Family
DX: M54.2 Cervicalgia (principal); M25.511 Pain in right shoulder; B02.8 Zoster with other complications; G51.0 Bell's palsy; M79.18 Myalgia, other site
CPT/HCPCS: 99212; G0463

== ENCOUNTER → 2023-07-21 15:11 | Outpatient (POV) | payer BC, SELFPAY ==
--- NOTE | 2023-07-21 15:25 | A.OFFVIS_ITS ---
[facility] Pain Management SOAP Note Subjective:: Patient is a pleasant 52-year-old female who presents today for medication refill and follow-up. We are currently treating the patient for right neck pain, right shoulder pain, acute herpes zoster outbreak with Balbuena's palsy, myofascial pain. Today she rates her pain a 0 out of 10. Patient states she is doing much better from our last visit. Patient states that she will occasionally still have a flareup of her right neck and shoulder pain with increased activity but overall has done extremely well from when we started seeing her. Patient was prescribed Vistaril 25 mg twice a day for itching along with methocarbamol 500 mg at night and gabapentin 300 mg daily. Patient states that she has not needed to use the Vistaril or the muscle relaxer for some time. Patient states she only takes the gabapentin as needed and has not had it since last Friday or . Patient does continue to use her compounding cream at least twice a day along with Tylenol and this works well. Patient states she has been doing a lot more driving to [place] and on certain days the increased activity or movements into her shoulder do worsen her pain. Her Yimi has been reviewed and is appropriate. Review of Systems: General: No recent weight changes, no fever, no sleep disturbances Respiratory: No cough, no shortness of air, no recurring pulmonary infections Cardiovascular/peripheral vascular: No chest pain, no palpitations, no edema, no shortness of breath Gastrointestinal: No new onset incontinence, normal bowel movements reported Genitourinary: No new onset incontinence Musculoskeletal: Neck and shoulder pain Psychiatric: [Normal mood/affect] Neurological: [Denies weakness in extremities], [denies balance issues] Objective:: Physical Exam: General: Alert and oriented x3, no acute distress, pleasant and cooperative Lungs: Respirations even and unlabored, symmetrical chest expansion Eyes: PERRL Musculoskeletal: Flexion and extension of cervical [spine] somewhat guarded secondary to pain, [antalgic gait noted] Neurological: Speech clear, no gross sensory deficit Assessment:: Neck pain, right shoulder pain, herpes zoster outbreak with Balbuena's palsy, myofascial pain Plan:: Patient has continued to do well following her last injections and medication regimen. I will refill her gabapentin 300 mg daily and provide a 3-month supply of this medication. Patient did not think she needed any refills on her compounded cream however I have counseled her that if she gets home and notices a discrepancy she can call our office and I will send in a refill on his cream. Patient will return to clinic in 3 months for reevaluation of symptoms and plan of care. Patient has been instructed to contact the clinic with any concerns before the next appointment. Dr. Mccarty has reviewed this note and agrees with this plan of care. This note was dictated using voice recognition software and make contain errors or omissions. [facility] Disclaimer: The information contained in this section may have been updated after the patient was seen, as this information can be updated by other users. Medical History HLD (hyperlipidemia) HTN (hypertension) Surgical History H/O: hysterectomy History of cholecystectomy Family History Other No significant family history Social History Smoking Status: Never smoker alcohol intake: never current occupational status: employe
[2023-07-21 15:28] VITALS: BP 144/88; PULSE 80; RESP 18; O2SAT 97; BMI 33.1
== END | disposition home or self-care (01) ==
PROVIDERS: PCP Internal Medicine; Visit Provider Nurse Practitioner Family
DX: M54.2 Cervicalgia (principal); M25.511 Pain in right shoulder; B02.29 Other postherpetic nervous system involvement; G51.0 Bell's palsy; M79.10 Myalgia, unspecified site
CPT/HCPCS: 99212; G0463

== ENCOUNTER 2023-09-22 08:29 | Outpatient (CLI) | payer BC, SELFPAY ==
[2023-09-22 17:28] LABS: Basophils % 0.5 % (0.1-2.0); Eosinophils # 0.1 K/mm3 (0.0-0.4); Eosinophils % 1.7 % (0.1-12.0); Hemoglobin 14.6 g/dL (12.2-16.2); Lymphocytes # 1.6 K/mm3 (0.7-4.5); Lymphocytes % 28.1 % (10-50); Mean Corpuscular Hemoglobin 31.5 pg (27.0-31.2); Mean Corpuscular Volume 92.7 fl (81-99); Mean Platelet Volume 8.9 fl (7.4-10.4); Monocytes # 0.3 K/mm3 (0.1-1.0); Monocytes % 4.8 % (1.7-9.3); Neutrophils # 3.7 K/mm3 (1.8-7.8); Neutrophils % 64.9 % (37.0-80.0); Platelet Count 219 K/mm3 (142-424); Red Blood Count 4.64 M/mm3 (4.20-5.40); Red Cell Distribution Width 12.4 % (11.5-17.5); White Blood Count 5.7 K/mm3 (4.8-10.8)
[2023-09-22 18:23] LABS: Chloride 103 mmol/L (98-107)
[2023-09-22 18:24] LABS: Potassium 3.9 mmoL/L (3.5-5.1); Sodium 139 mmol/L (136-145)
[2023-09-22 18:26] LABS: Alanine Aminotransferase 56 U/L (12-78); Albumin Level 4.2 g/dl (3.5-5.0); Albumin/Globulin Ratio 1.5 (1.1-1.8); Alkaline Phosphatase 104 U/L (38-126); Anion Gap 10.9 mEq/L (5-15); Aspartate Amino Transferase 43 U/L (14-36); Bilirubin,Total 0.6 mg/dl (0.2-1.3); Blood Urea Nitrogen 13 mg/dl (7-17); Calcium 8.9 mg/dl (8.4-10.2); Carbon Dioxide 29 mmol/L (22.0-30.0); Cholesterol 206 mg/dl (140-200); Estimated Glomerular Filt Rate 58 ml/min (>60); GFR (African American) 70 ML/MIN (>60); Globulin 2.8 g/dL (1.3-3.2); Glucose 93 mg/dl (74-100); Triglycerides 248 mg/dl (30-150); VLDL Cholesterol 50 mg/dL (0-40)
[2023-09-22 18:27] LABS: Chol/HDL Ratio 3.8 (1-3.5); HDL Cholesterol 54 mg/dl (40-60); Hemoglobin A1C 5.3 % (4.0-6.0)
[2023-09-22 18:39] LABS: Direct LDL Cholesterol 83.29 mg/dL (100-129)
[2023-09-22 19:04] LABS: Ferritin 48.6 ng/ml (11.1-264)
[2023-09-22 19:12] LABS: 25-OH Vitamin D, Total 27.4 ng/mL (30-100)
[2023-09-22 20:34] LABS: Vitamin B12 489 pg/mL (239-931)
== END 2023-09-22 23:59 ==
LOC: LAB.DROPOF 09-24 08:29
PROVIDERS: PCP Nurse Practitioner Family; Visit Provider Nurse Practitioner Family
DX: G51.0 Bell's palsy (principal); D50.9 Iron deficiency anemia, unspecified; E78.5 Hyperlipidemia, unspecified; I10 Essential (primary) hypertension; R79.89 Other specified abnormal findings of blood chemistry; E55.9 Vitamin D deficiency, unspecified; Z79.899 Other long term (current) drug therapy
CPT/HCPCS: 80053; 80061; 82306; 82607; 82728; 83036; 84443; 85025

== ENCOUNTER → 2023-10-27 11:26 | Outpatient (POV) | payer BC, SELFPAY ==
[2023-10-27 11:48] VITALS: BP 145/91; PULSE 75; RESP 18; O2SAT 97; BMI 33.5
--- NOTE | 2023-10-27 12:09 | EXP.PAIN.SOA ---
[facility] Pain Management SOAP Note Subjective:: Patient is a pleasant 53-year-old female who presents today for follow-up. We are currently treating the patient for right neck pain, right shoulder pain, acute herpes zoster outbreak with Balbuena's palsy, myofascial pain. Today she rates her pain a 0 out of 10. Patient denies any new trauma or injury. She states she is doing extremely well. Patient states that she has not had to use her muscle relaxers or her gabapentin since around July. Patient is requesting refills for compounded cream. Her Yimi has been reviewed and is appropriate. Review of Systems: General: No recent weight changes, no fever, no sleep disturbances Respiratory: No cough, no shortness of air, no recurring pulmonary infections Cardiovascular/peripheral vascular: No chest pain, no palpitations, no edema, no shortness of breath Gastrointestinal: No new onset incontinence, normal bowel movements reported Genitourinary: No new onset incontinence Musculoskeletal: Neck/shoulder pain Psychiatric: [Normal mood/affect] Neurological: [Denies weakness in extremities], [denies balance issues] Objective:: Physical Exam: General: Alert and oriented x3, no acute distress, pleasant and cooperative Lungs: Respirations even and unlabored, symmetrical chest expansion Eyes: PERRL Musculoskeletal: Flexion and extension of cervical [spine] somewhat guarded secondary to pain, [antalgic gait noted] Neurological: Speech clear, no gross sensory deficit Assessment:: Right neck pain, right shoulder pain, acute herpes zoster outbreak with Balbuena's palsy, myofascial pain Plan:: Patient is doing extremely well and has had resolution of her shingles outbreak and residual neuropathy. I will refill the patient's compounded cream and have counseled the patient that she can call to schedule her next appointment as needed. Patient has been instructed to contact the clinic with any concerns before the next appointment. Dr. Mccarty has reviewed this note and agrees with this plan of care. This note was dictated using voice recognition software and make contain errors or omissions. [facility] Disclaimer: The information contained in this section may have been updated after the patient was seen, as this information can be updated by other users. Medical History HLD (hyperlipidemia) HTN (hypertension) Surgical History H/O: hysterectomy History of cholecystectomy Family History Other No significant family history Social History Smoking Status: Never smoker alcohol intake: never current occupational status: employed Travel in the last 8 weeks: None
== END ==
LOC: SC.PAIN 11:27
PROVIDERS: PCP Nurse Practitioner Family; Visit Provider Nurse Practitioner Family
DX: M54.2 Cervicalgia (principal); M25.511 Pain in right shoulder; M79.10 Myalgia, unspecified site
CPT/HCPCS: 99212; G0463

== ENCOUNTER 2023-10-27 12:42 | Outpatient (CLI) | payer BC, SELFPAY ==
[2023-10-27 13:54] LABS: Chloride 105 mmol/L (98-107); Sodium 139 mmol/L (136-145)
[2023-10-27 13:57] LABS: Alanine Aminotransferase 82 U/L (12-78); Albumin Level 4.2 g/dl (3.5-5.0); Albumin/Globulin Ratio 1.6 (1.1-1.8); Alkaline Phosphatase 111 U/L (38-126); Anion Gap 7.9 mEq/L (5-15); Aspartate Amino Transferase 62 U/L (14-36); Bilirubin,Total 0.7 mg/dl (0.2-1.3); Blood Urea Nitrogen 10 mg/dl (7-17); Carbon Dioxide 30 mmol/L (22.0-30.0); Estimated Glomerular Filt Rate 58 ml/min (>60); GFR (African American) 70 ML/MIN (>60); Globulin 2.7 g/dL (1.3-3.2); Potassium 3.9 mmoL/L (3.5-5.1); Total Protein,Serum 6.9 g/dl (6.3-8.2)
[2023-10-27 13:58] LABS: Calcium 9.2 mg/dl (8.4-10.2); Glucose 89 mg/dl (74-100)
[2023-10-27 17:51] LABS: 25-OH Vitamin D, Total 29.7 ng/mL (30-100)
== END 2023-10-27 23:59 ==
LOC: LAB.DROPOF 12:43
PROVIDERS: PCP Nurse Practitioner Family; Visit Provider Nurse Practitioner Family
DX: R79.89 Other specified abnormal findings of blood chemistry (principal); R74.8 Abnormal levels of other serum enzymes; E55.9 Vitamin D deficiency, unspecified; Z68.33 Body mass index [BMI] 33.0-33.9, adult
CPT/HCPCS: 80053; 82306

== ENCOUNTER 2023-11-11 07:53 | Outpatient (CLI) | payer BC, SELFPAY ==
--- NOTE | 2023-11-11 07:56 | US_ITS ---
FINAL REPORT CLINICAL HISTORY: . Elevated liver enzymes COMPARISON: None FINDINGS: RENAL ULTRASOUND: The right kidney measures 10.2 cm in length. No evidence of hydronephrosis or focal mass is seen. The left kidney measures 10.9 cm in length. Once again no evidence of hydronephrosis or focal mass is seen. IMPRESSION: No renal abnormality identified. Reviewed, Interpreted and Dictated by Justen Garcia III, MD Transcribed by Aliyah Wren Authenticated and . [facility]
--- NOTE | 2023-11-11 07:56 | US_ITS ---
FINAL REPORT CLINICAL HISTORY: elevated liver enzymes COMPARISON: None FINDINGS: Sonographic images of the right upper quadrant were obtained. The pancreas is partially obscured.The liver has an unremarkable appearance. The gallbladder has been surgically resected. There is no evidence of biliary ductal dilatation.The common duct measures 3 mm. Limited images of the right kidney are unremarkable. IMPRESSION: Prior cholecystectomy without evidence of biliary ductal dilatation. Otherwise unremarkable right upper quadrant ultrasound. Reviewed, Interpreted and Dictated by Justen Garcia III, MD Transcribed by Aliyah Wren Authenticated and [facility]
== END 2023-11-11 23:59 ==
LOC: RAD 07:53
PROVIDERS: PCP Nurse Practitioner Family; Visit Provider Nurse Practitioner Family
DX: N18.30 Chronic kidney disease, stage 3 unspecified (principal); R74.8 Abnormal levels of other serum enzymes
CPT/HCPCS: 76705; 76770

== ENCOUNTER 2023-12-01 12:50 | Outpatient (CLI) | payer BC, SELFPAY ==
[2023-12-01 13:43] LABS: Alanine Aminotransferase 38 U/L (12-78); Albumin Level 4.2 g/dl (3.5-5.0); Alkaline Phosphatase 97 U/L (38-126); Aspartate Amino Transferase 31 U/L (14-36); Bilirubin,Direct 0.1 mg/dl (0.0-0.4); Bilirubin,Indirect 0.6 mg/dL (0.0-0.9); Bilirubin,Total 0.7 mg/dl (0.2-1.3); Bilirubin,Unconjugated 0.5 mg/dL (0.0-1.1); Total Protein,Serum 6.8 g/dl (6.3-8.2)
== END 2023-12-01 23:59 ==
LOC: LAB.DROPOF 12:50
PROVIDERS: PCP Nurse Practitioner Family; Visit Provider Nurse Practitioner Family
DX: R74.8 Abnormal levels of other serum enzymes (principal); N18.30 Chronic kidney disease, stage 3 unspecified
CPT/HCPCS: 80076

== ENCOUNTER 2024-06-07 16:40 | Outpatient (CLI) | payer BC, SELFPAY | END 2024-06-07 23:59 | disposition home or self-care (01) | LOC: LAB.DROPOF 06-09 16:40 | PROVIDERS: PCP Nurse Practitioner Family; Visit Provider Nurse Practitioner Family | DX: L30.9 Dermatitis, unspecified (principal) | CPT/HCPCS: 87070; 87077; 87186; 87205 ==

== ENCOUNTER 2024-10-30 10:31 | Outpatient (CLI) | payer BC, SELFPAY ==
[2024-10-30 20:52] LABS: Human Rhinovirus Not Detected (NotDetected); Influenza A, PCR Not Detected (NotDetected); Influenza B, PCR Not Detected (NotDetected); Respiratory Syncytial Virus Not Detected (NotDetected)
[2024-10-30 22:30] LABS: Coronavirus 19, PCR Detected (NotDetected)
== END 2024-10-30 23:59 | disposition home or self-care (01) ==
LOC: LAB.DROPOF 11-02 16:06
PROVIDERS: PCP Nurse Practitioner Family; Visit Provider Nurse Practitioner Family
DX: J06.9 Acute upper respiratory infection, unspecified (principal); J02.9 Acute pharyngitis, unspecified; R09.82 Postnasal drip
CPT/HCPCS: 87631

== ENCOUNTER 2025-01-25 16:26 | Outpatient (CLI) | payer BC, SELFPAY ==
[2025-01-25 13:10] LABS: Anti-Centromere B Antibodies ND; Anti-DNA (DS) Ab Qn ND; Anti-Jo-1 ND; Antichromatin Antibodies ND; Antiscleroderma-70 Antibodies ND; RNP Antibodies ND; Sjogren's Anti-SS-A ND; Sjogren's Anti-SS-B ND
[2025-01-25 14:27] LABS: Basophils # 0.1 K/mm3 (0-0.2); Basophils % 0.8 % (0.1-2.0); Eosinophils # 0.1 Kmm3 (0.0-0.4); Eosinophils % 1.6 % (0.1-12.0); Hematocrit 43.5 % (37.0-47.0); Hemoglobin 14.7 g/dL (12.2-16.2); Immature Granulocytes # 0.01 10^3uL; Immature Granulocytes % 0.2 %; Lymphocytes # 1.5 K/mm3 (0.7-4.5); Lymphocytes % 23.9 % (10-50); Mean Corpuscular HGB Conc 33.8 g/dL (31.8-35.4); Mean Corpuscular Hemoglobin 30.3 pg (27.0-31.2); Mean Corpuscular Volume 89.7 fl (81-99); Mean Platelet Volume 11.4 fl (7.4-10.4); Monocytes # 0.5 K/mm3 (0.1-1.0); Neutrophils % 65.5 % (37.0-80.0); Nucleated Red Blood Cells # 0 10^3/uL; Nucleated Red Blood Cells % 0 %; Platelet Count 215 K/mm3 (142-424); Red Blood Count 4.85 M/mm3 (4.20-5.40); Red Cell Distribution Width 12.2 % (11.5-17.5); White Blood Count 6.1 K/mm3 (4.8-10.8)
[2025-01-25 14:56] LABS: Alanine Aminotransferase 53 U/L (12-78); Albumin Level 4.4 g/dl (3.5-5.0); Albumin/Globulin Ratio 1.7 (1.1-1.8); Alkaline Phosphatase 95 U/L (38-126); Aspartate Amino Transferase 44 U/L (14-36); Bilirubin,Total 0.6 mg/dl (0.2-1.3); Blood Urea Nitrogen 10 mg/dl (7-17); Calcium 9.5 mg/dl (8.4-10.2); Carbon Dioxide 32 mmol/L (22.0-30.0); Chloride 101 mmol/L (98-107); Chol/HDL Ratio 3.2 (1-3.5); Cholesterol 201 mg/dl (140-200); Estimated Glomerular Filt Rate 65 ml/min (>60); GFR (African American) 79 ML/MIN (>60); Globulin 2.6 g/dL (1.3-3.2); Glucose 71 mg/dl (74-100); HDL Cholesterol 63 mg/dl (40-60); Magnesium 2.4 mg/dl (1.6-2.3); Sodium 138 mmol/L (136-145); Triglycerides 220 mg/dl (30-150); VLDL Cholesterol 44 mg/dL (0-40)
[2025-01-25 15:01] LABS: Anion Gap 9.2 mEq/L (5-15); Potassium 4.2 mmoL/L (3.5-5.1)
[2025-01-25 15:06] LABS: Direct LDL Cholesterol 86.93 mg/dL (100-129)
[2025-01-25 15:11] LABS: 25-OH Vitamin D, Total 21.2 ng/mL (30-100)
[2025-01-25 16:21] LABS: Thyroid Stimulating Hormone 2.09 uIU/mL (0.465-4.68)
[2025-01-25 16:25] LABS: Ferritin 30.4 ng/ml (11.1-264)
[2025-01-26 12:14] LABS: Antinuclear Antibodies (ANA) Negative (Negative)
[2025-01-27 04:31] LABS: Triiodothyronine (T3) Free 3.1 pg/mL (2.0-4.4)
== END 2025-01-25 23:59 | disposition home or self-care (01) ==
LOC: LAB.DROPOF 16:26
PROVIDERS: PCP Nurse Practitioner Family; Visit Provider Nurse Practitioner Family
DX: E78.5 Hyperlipidemia, unspecified (principal); I12.9 Hypertensive chronic kidney disease with stage 1 through stage 4 chronic kidney disease, or unspecified chronic kidney disease; N18.30 Chronic kidney disease, stage 3 unspecified; D50.9 Iron deficiency anemia, unspecified; R79.89 Other specified abnormal findings of blood chemistry; B02.29 Other postherpetic nervous system involvement; B02.9 Zoster without complications; E55.9 Vitamin D deficiency, unspecified
CPT/HCPCS: 80053; 80061; 82306; 82728; 83735; 84443; 84481; 85025; 86038; 86140

== ENCOUNTER 2025-02-04 06:56 | Outpatient (CLI) | payer SELFPAY ==
--- NOTE | 2025-02-04 07:00 | CT_ITS ---
APPROVED REPORT [employer]: CLINICAL INDICATION Coronary risk evaluation and stratification TECHNIQUE Image Acquisition: A 128 slice MDCT scanner ([employer] View) was used for data acquisition. A noncontrast coronary calcium scan was performed. A CT attenuation threshold of 130 Hounsfield units (HU) was used for the detection of calcium in contiguous voxels of 1 sq mm in area to be counted as individual lesions. A tube voltage of 120 KVp was used. The patient received no medications prior to the coronary calcium CT. Image Reconstruction Transaxial images were reconstructed at 0.67 mm slide thickness. Data was reviewed interactively on an advanced workstation capable of 2 and 3-dimensional displays in all conventional reconstruction formats, including multiplanar reformations, maximum intensity projections, curved multiplanar reformations, and volume rendered reconstructions. When applicable, selected routine images describing the relevant coronary anatomy and pathology were saved and sent to PACS. Complications None Technical Quality Overall image quality was good. Total DLP (Dose-Length Product) is 161.9 mGy-cm. The reported value represents the total of one or more individual components during the CT acquisition of this date and at this time, and as such, the same value may appear in more than one CT report depending on the interpreting/reporting physicians. COMPARISON None FINDINGS CT Coronary Calcium Scoring LMA (Left Main Artery) = 0 LAD (Left Anterior Descending) = 0 LCX (Left Coronary Circumflex) = 0 RCA (Right Coronary Artery) = 0 Total Calcium Score = 0 using the AJ-130 method. There is no identifiable calcification in the aortic valve, mitral annulus or mitral valve, pericardium, or myocardium. IMPRESSION -Coronary artery calcification is absent. -Total Calcium Score (Agatston Score) = 0 using the AJ-130 method. The interpretation of the calcium heart score is based on the following continuum*: 0 = no calcified plaque detected (risk of coronary artery disease is very low ??? less than 5%) 1-10 = calcium detected in extremely minimal levels (risk of coronary diseases is still low ??? less than 10%) 11-100 = mild levels of plaque detected with certainty (mild or minimal narrowing of heart arteries is likely) 101-400 = definite,at least moderate levels of plaque detected (relatively high risk of a heart attack within 3-5 years) >401-999 = extensive levels of plaque detected (high risk of heart attack, high levels of vascular disease are present, high likelihood of at least one significant coronary narrowing) *The calcium heart score quantifies the burden of coronary calcification/plaque in the coronary arteries. The calcium heart score does not evaluate the presence or the burden of non-calcified (i.e. soft) plaque. The coronary and cardiac findings of this Coronary Calcium CT were reviewed, reported, and signed by Kody Hinds MD ([place]). Conclusion Electronically signed by : Katarzyna Hinds MD 02/05/2025 21:07:44
== END 2025-02-04 23:59 | disposition home or self-care (01) ==
PROVIDERS: PCP Nurse Practitioner Family; Visit Provider Nurse Practitioner Family
DX: R06.09 Other forms of dyspnea (principal); I10 Essential (primary) hypertension
CPT/HCPCS: 75571